=== PATIENT | female | born 1955 | race Caucasian/White ===

== ENCOUNTER 2017-09-26 06:02 | Day surgery (SDC) | payer OTHER ==
[2017-09-25 14:11] VITALS: BMI 26.2
[2017-09-26] VITALS (12 sets, daily range): BP systolic 115–160; BP diastolic 72–88; PULSE 54–69; RESP 10–25; Ht 157.5 cm; Wt 64.4 kg
[~2017-09-26] VITALS: Ht 157.5 cm; Wt 64.4 kg
--- NOTE | 2017-09-26 05:52 | PREOPHP ---
DATE OF ADMISSION: 09/26/2017 HISTORY OF PRESENT ILLNESS: This is a 61-year-old lady, 2, para 2. Her last normal menstrual period was at the age of 56. She was admitted for D and C, hysteroscopy and suction curettage. This patient has a history of on and off vaginal spotting for the last few months. She had endometrial biopsy done and endometrial biopsy showed very little tissue. The pathologist was not able to find enough endometrial tissue for diagnosis. So she was admitted for D and C, hysteroscopy and suction curettage. The procedures were explained to the patient and she understood everything totally. The risks, benefits, and alternatives were discussed with her as well. PAST MEDICAL HISTORY: No history of TB or asthma. ALLERGIES: NO ALLERGIES. SOCIAL HISTORY: The patient does not smoke. She does not drink. She does not take any drugs. 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 She is 2, para 2, with two previous sections. FAMILY HISTORY: Mother has high blood pressure. Father had a stroke. Dad had cancer. REVIEW OF SYSTEMS: CARDIOVASCULAR: No chest pains. LUNGS: No cough. GASTROINTESTINAL: No diarrhea, no vomiting. GENITOURINARY: No dysuria. PHYSICAL EXAMINATION: GENERAL: Reveals a conscious, coherent lady, in no acute distress. VITAL SIGNS: Blood pressure 120/80, Pulse rate 80 per minute, respirations 16 per minute. BREASTS: Within normal limits. HEART: Within normal limits. LUNGS: Within normal limits. ABDOMEN: Soft. No organomegaly. PELVIC: The cervix is firm. Uterus of normal size and adnexa were negative for masses. Rectal exam confirmed the pelvic findings. EXTREMITIES: No pedal edema. ADMITTING DIAGNOSIS: Postmenopausal bleeding. The patient was planned to have the above procedure. Dictated By: Faye Guerrero MD /devyn/bhavna /Document#: [id number] ; [place]
[~2017-09-26 06:02] MED LIST: FOSAMAX; NO MEDS
[2017-09-26] MEDS ORDERED: MIDAZOLAM 1 MG/ML 2 ML INJ ONE (07:17)
[2017-09-26] MEDS ORDERED: METOCLOPRAMIDE 10 MG INJ ONE (07:21)
[2017-09-26] MEDS ORDERED: KETOROLAC 30 MG INJ ONE (07:21)
[2017-09-26] MEDS ORDERED: PROPOFOL 20 ML ONE (07:21)
[2017-09-26] MEDS ORDERED: ONDANSETRON 4 MG INJ ONE (07:21)
[2017-09-26] MEDS ORDERED: FENTAnyl 50 MCG/ML VIAL ONE (07:24)
--- NOTE | 2017-09-26 08:13 | SIPON ---
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
[2017-09-26] MEDS ORDERED: OXYCODONE/ACETAMINOPHEN (5/325) TAB PO PRN ×2 (08:30)
[2017-09-26] MEDS ORDERED: HYDROmorphONE (0.2 MG/ML) 10ML SYG IV PRN ×3 (08:30)
[2017-09-26] MEDS ORDERED: ONDANSETRON 4 MG INJ IV PRN (08:30)
[2017-09-26] MEDS ORDERED: ACETAMINOPHEN 325 MG TAB PO PRN (08:30)
--- NOTE | 2017-09-26 10:34 | OPR ---
DATE OF OPERATION: 09/26/2017 PREOPERATIVE DIAGNOSIS: Postmenopausal bleeding. POSTOPERATIVE DIAGNOSIS: Pending pathology report. SURGEON: Faye Guerrero MD ORDNANCE ENGINEERING TECHNICIAN: senior engineering tech. ANESTHESIA: General. OPERATION PERFORMED: Fractional dilatation and curettage, hysteroscopy and suction curettage. OPERATIVE PROCEDURE: Under general anesthesia, the patient was prepped and draped in the usual fashion for vaginal surgery. Pelvic exam under anesthesia revealed the cervix to be firm. Uterus of normal size and adnexa were negative for masses. Then the heavyweight vaginal retractor was put in place and the anterior lip of the cervix was grasped with an Allis clamp and the cervical dilatation up to Hegar 6 was proceeded. Uterus was sounded to about 2.5 inches. Then the hysteroscope was inserted inside the uterine cavity and connected with the light source and distended with normal saline. The lining of the uterus was noted to be very pale looking and atrophic. No polyps, nor fibroids seen. Cervical curettage was performed, a small amount of tissue was obtained. Endometrial curettage was performed, a small amount of tissue was obtained. Suction tip size 6 was inserted inside the uterine cavity and connected with a suction machine. Suction curettage was performed and good amount of tissue was obtained. This was followed by gentle sharp curettage. The uterus was intact during and after the procedure. The patient tolerated the procedure well. ESTIMATED BLOOD LOSS: Minimal. Vital signs were stable during and after the procedure. Dictated By: Faye Guerrero MD /devyn/yadi /Document#: [id number]
== END 2017-09-26 09:30 | disposition home or self-care (01) ==
LOC: SDS 06:02
PROVIDERS: ATTEND Obstetrics & Gynecology
DX: N95.0 Postmenopausal bleeding (principal)
CPT/HCPCS: 58558; 86850; 86900; 86901; 88305; J1170; J1885; J2250; J2405; J2765; J3010; Z7512; Z7610